=== PATIENT | male | born 1990 | race African-American/Black ===

== ENCOUNTER 2018-08-25 21:37 | Emergency (ER) | payer OTHER ==
[~2018-08-25] VITALS: Ht 170.2 cm; Wt 72.6 kg
[2018-08-25 22:10] VITALS: BP 140/90
--- NOTE | 2018-08-25 22:12 | NUR ---
TO LOBBY A/W BED, VIA WHEELCHAIR
--- NOTE | 2018-08-25 22:20 | NUR ---
28 Y/O MALE BIB EMS, WHEEL CHAIR ASSISTED TO LOBBY WITH VSS. UPON EVALUATION AT BEDSIDE IN BED 11, PT ETOH. ALERT TO NAME, PLACE, AND EVENT. SMELLS OF STRONG ALCOHOL. PT DRINKING AT HOME. NO DISTRESS OF ANY KIND NOTED. VSS AT BEDSIDE. ER MD AWARE. X2 SIDE RAILS UP. CONTINUE TO MONITOR.
--- NOTE | 2018-08-25 22:20 | NUR ---
PT AMBULATED FROM WHEEL CHAIR TO GURNEY. GAIT UNSTEADY. VSS. CONTINUE TO MONITOR.
--- NOTE | 2018-08-25 22:20 | NUR ---
PT TRANSFERED TO BED 11 VIA WHEELCHAIR, PIVOT ASSIST INTO BED
[2018-08-25] MEDS ORDERED: MULTIVITAMIN-12 10 ML, THIAMINE 100 MG, FOLIC ACID 1 MG, MAGNESIUM SULFATE 50% 2,000 MG... IV SCH ×5 (23:00)
[2018-08-25 23:21] LABS: BASOPHILS # (AUTO) 0.1 K/uL (0.00-0.22); HEMATOCRIT 41.1 % (36-52); LYMPHOCYTES # (AUTO) 0.2 K/uL (2.0-11.5); MEAN CORPUSCULAR HEMOGLOBIN 32 pg (27-31); MEAN CORPUSCULAR HGB CONC 34 g/dL (33-37); MEAN CORPUSCULAR VOLUME 93.5 fL (80-94); MONOCYTES # (AUTO) 0.6 K/uL (0.8-1.0); MONOCYTES % (AUTO) 7.1 % (1.7-9.3); NEUTROPHILS # (AUTO) 7.8 K/uL (1.8-7.7); NEUTROPHILS % (AUTO) 89.1 % (42.2-75.2); PLATELET COUNT (AUTO) 87 K/uL (140-450); RED BLOOD CELL COUNT(AUTO) 4.39 MIL/uL (4.20-6.10); RED CELL DISTRIBUTION WIDTH 17.3 % (11.6-13.7); WHITE BLOOD COUNT (AUTO) 8.7 K/uL (4.8-10.8)
[2018-08-25] MEDS ORDERED: MULTIVITAMIN-12 10 ML VIAL IV ONE (23:23)
[2018-08-25] MEDS ORDERED: FOLIC ACID 5 MG/ML SYR ONE (23:23)
[2018-08-25] MEDS ORDERED: THIAMINE 200 MG/2 ML VIAL ONE (23:23)
[2018-08-25] MEDS ORDERED: MAG SULF 2000 MG/WATER PREMIX 50 ML IV ONE ×2 (23:25)
[2018-08-25 23:30] LABS: ANION GAP 22.3 (8-16); CARBON DIOXIDE 24.9 mmol/L (21-32); CHLORIDE 94 mmol/L (98-107); CREATININE 0.7 mg/dL (0.7-1.3); GFR ARICAN-AMERICAN 175 mL/min (>90); GLUCOSE 99 mg/dL (74-106); POTASSIUM 3.2 mmol/L (3.5-5.1); SODIUM SERUM 138 mmol/L (136-145); UREA NITROGEN, BLOOD 10 mg/dL (7-18)
[2018-08-25 23:32] LABS: LYMPHOCYTES % (AUTO) 2.8 % (20.5-51.1)
[2018-08-25 23:38] LABS: ALBUMIN 4.5 g/dL (3.4-5.0); ASPARTATE AMINOTRANSFERASE 281 U/L (15-37); TOTAL BILIRUBIN 2.4 mg/dL (0.0-1.0)
[2018-08-25 23:39] LABS: ACETAMINOPHEN < 0.5 ug/ml (10-30); SALICYLATE < 2.8 mg/dL (2.8-20.0)
--- NOTE | 2018-08-25 23:40 | NUR ---
MAGNESIUM 2G VIAL UNAVAILABLE IN PIXIS. PULLED MAGNSIUM 2G/50ML AND HUNG IVP AT 25ML/HR. CONTINUE TO MONITOR.
--- NOTE | 2018-08-26 | NUR ---
PT IN BED RESTING WITH EYES CLOSED. VSS. CONTINUE TO MONITOR.
[2018-08-26] MEDS ORDERED: NACL 0.9% 1,000 ML IV ONE (01:45)
--- NOTE | 2018-08-26 02:00 | NUR ---
PT IN BED RESTING WITH EYES OPEN. STATES NO PAIN. VSS. DR HERMOSILLO TOLD PT HE CAN STAY AND REST UNTIL 6AM. PT AGREES AND STATES WILL REST.
--- NOTE | 2018-08-26 04:00 | NUR ---
PT IN BED RESTING WITH EYES CLOSED. VSS. CONTINUE TO MONITOR.
[2018-08-26] MEDS ORDERED: GABAPENTIN 300 MG CAP PO ONE (04:55)
--- NOTE | 2018-08-26 05:30 | NUR ---
PT ASKING FOR NARCOTIC PAIN MEDICATIONS. DR HERMOSILLO REFUSED. PT INFORMED BY DR HERMOSILLO THAT HE IS STABLE AND ABLE TO GO HOME AND READY FOR DISCHARGE. PT AGREED. VSS. CONTINUE TO MONITOR.
[2018-08-26] MEDS ORDERED: GABAPENTIN 300 MG CAP ONE (05:57)
[2018-08-26 06:00] VITALS: BP 109/55
--- NOTE | 2018-08-26 06:00 | NUR ---
PT READY FOR DISCHARGE. PROVIDED WITH ALCOHOL/SUBSTANCE ABUSE PACKET, BUS PASS, FOODD, AND WATER. Addendum: 08/26/18 at 0647 by [facility] PT READY FOR DISCHARGE. PROVIDED WITH ALCOHOL/SUBSTANCE ABUSE PACKET, BUS PASS, FOOD, AND WATER. PT REFUSED. THEN STATES, "MY LEGS DON'T WORK AND I CAN'T WALK." STAFF INFORMED PT THAT WE WITNESSED HIM AMBULATE. PT STATES HE NEEDS HELP WITH HIS ALCOHOLISM. PROVIDED PT WITH RESOURCES. PT ACCEPTED [employer]ANNIE PASS, FOOD, AND WATER. PT AMBULATED FROM BED TO LOBBY. MOTHER, BROTHER, FATHER, AND FATHERS GIRLFRIEND CALLED. THE FATHERS GIRLFRIEND LISANDRO CALLED BACK AND SAID SHE WILL PICK PT UP. PT AMBULATED SELF TO LOBBY. DISCHARGED WITH VSS. INSTRUCTED TO F/U WITH PCP AND [facility] AND ACQUISITIONS CONSULTANT FOR HELP. PT VERBALLIZED UNDERSTANDING. ALL QUESTIONS ANSWERED.
== END 2018-08-26 06:00 | disposition home or self-care (01) ==
LOC: MED 21:37
DX: F10.129 Alcohol abuse with intoxication, unspecified (principal); R11.10 Vomiting, unspecified; Y90.8 Blood alcohol level of 240 mg/100 ml or more
CPT/HCPCS: 36415; 80053; 85025; 93005; 96361; 96365; 96368; 99284; A9153; G0480; G0482; J3411; J3475; J3490